=== PATIENT | male | born 1970 | race Hispanic/Latino ===

== ENCOUNTER 2016-11-24 10:41 | Emergency (ER) | payer SELFPAY ==
[2016-11-24] MEDS ORDERED: Ondansetron HCl/PF 4 MG/2 ML Vial ONE (11:13)
[2016-11-24] MEDS ORDERED: Sodium Chloride 0.9% 1,000 ML ONE ×2 (11:13→14:55)
[2016-11-24] MEDS ORDERED: Pantoprazole 40 MG VIAL ONE (11:13)
[2016-11-24 11:36] LABS: Blood, Urine Negative (Negative); Clarity Clear (Clear); Glucose, Urine (Dipstick) Negative (Negative); Leukocyte Negative (Negative); Nitrite Negative (Negative); Protein, Urine (Dipstick) 100 mg/dL (Neg-Trace); Specific Gravity, Urine 1.025 (1.005-1.030); pH, Urine 5.5 (5.0-9.0)
[2016-11-24 11:37] LABS: Bilirubin Small (Negative); Icto Positive (Negative)
[2016-11-24 11:51] LABS: Bacteria/HPF Rare-Few HPF (None Seen); Hyaline Casts/LPF 0-3 HYALINE CAST LPF (0-3 Hyaline); Other Casts/LPF 0-3 MIXED CASTS LPF (0-3 Hyaline); RBC/HPF None Seen HPF (0-3); Squamous Epithelial 0-3 HPF (0-3); WBC/HPF 0-3 HPF (0-3)
[2016-11-24 12:03] LABS: ALT (SGPT) 76 U/L (0-55); AST (SGOT) 108 U/L (5-34); Albumin 4.6 g/dL (3.5-5.0); Alkaline Phosphatase 265 U/L (40-150); Amylase 61 U/L (25-125); Anion Gap 19 mmol/L (10-20); BUN (Urea Nitrogen) 21 mg/dL (8.9-20.6); Bilirubin, Total 1.5 mg/dL (0.2-1.2); Calc. Creatinine Clearance 0 mL/min (70-130); Calcium 9.9 mg/dL (7.8-10.44); Carbon Dioxide 22 mmol/L (22-29); Chloride 98 mmol/L (98-107); Estimated GFR-MDRD 67; Globulin 5.2 g/dL (2.4-3.5); Glucose 129 mg/dL (70-105); Lipase 106 U/L (8-78); Potassium 4.7 mmol/L (3.5-5.1); Protein, Total 9.8 g/dL (6.0-8.3); Sodium 134 mmol/L (136-145)
--- NOTE | 2016-11-24 12:11 | CT ---
CT ABDOMEN AND PELVIS WITH CONTRAST HISTORY: Diffuse abdominal pain for two days. History of abdominal tumor and hernia repair. COMPARISON: 11/17/2016 TECHNIQUE: Multiple contiguous axial images were obtained in a CT of the abdomen and pelvis with contrast. Cor onal reformats were performed. FINDINGS: Calcifications are seen in the gallbladder. There appears to be gallbladder wall thickening. Stran ding changes are seen surrounding the gallbladder. No free air or free fluid is seen in the abdomen or pelvis. The liver, kidneys, adrenal glands, spleen, and pancreas are unremarkable. There are scattered diverticula in the colon. The small bowel and appendix are unremarkable. No ab dominal or pelvic lymphadenopathy is seen. Degenerative changes are seen in the spine. The visualized inferior thorax and abdominal wall soft tissues are unremarkable. IMPRESSION: Cholelithiasis. The stranding changes surrounding the gallbladder may be secondary to acute cholecy stitis. Correlate with liver function tests. A right upper quadrant ultrasound may be necessary fo r further evaluation. POS: [facility]
[2016-11-24 12:31] LABS: #Basophils 0.1 thou/uL (0.0-0.2); #Eosinphils 0.3 thou/uL (0.0-0.7); #Lymphocytes 2.1 thou/uL (1.20-3.40); #Neutrophils 9.8 thou/uL (1.40-6.50); %Eosinophils 2.3 % (0.0-10.0); %Lymphocytes 15.5 % (21.0-51.0); %Monocytes 7.8 % (0.0-10.0); %Neutrophils 73.3 % (42.0-75.0); Hemoglobin 16.9 g/dL (14.0-18.0); Mean Corpuscular HGB CONC 33.6 g/dL (32.0-36.0); Mean Corpuscular Hemoglobin 28.6 pg (27.0-31.0); Mean Corpuscular Volume 85.2 fl (80.0-94.0); Mean Platelet Volume 8.3 fL (7.4-10.4); Platelet Count 276 thou/uL (130-400); RBC Distribution Width 12.1 % (11.5-14.5); Red Blood Cell (RBC) Count 5.93 mill/uL (4.70-6.10); White Blood Cell (WBC) Count 13.4 thou/uL (4.8-10.8)
[2016-11-24] MEDS ORDERED: Sodium Chloride 0.9% 0 ML ONE (12:45)
[2016-11-24] MEDS ORDERED: Piperacillin/Tazobactam 3.375 GM VIAL ONE (12:45)
[2016-11-24] MEDS ORDERED: Sodium Chloride 0.9% 100 ML ONE (12:48)
== END 2016-11-24 16:04 | disposition short-term general hospital (02) ==
LOC: NAV ERS 10:41
DX: K81.0 Acute cholecystitis (principal); E11.9 Type 2 diabetes mellitus without complications; I10 Essential (primary) hypertension; E78.5 Hyperlipidemia, unspecified
CPT/HCPCS: 36415; 74177; 80053; 81003; 81015; 82150; 83690; 85025; 96361; 96365; 96375; 96376; C9113; J1170; J2405; J2543; J7050

== ENCOUNTER 2017-12-01 01:18 | Emergency (ER) | payer OTHER, SELFPAY ==
[2017-12-01] MEDS ORDERED: Ondansetron HCl/PF 4 MG/2 ML Vial ONE (02:21)
[2017-12-01 02:30] LABS: PTT 29.2 SEC (22.9-36.1); Prothrombin Time 13.5 SEC (12.0-14.7)
[2017-12-01 02:38] LABS: ALT (SGPT) 37 U/L (8-55); AST (SGOT) 28 U/L (5-34); Albumin 4.1 g/dL (3.5-5.0); Alkaline Phosphatase 96 U/L (40-150); Anion Gap 16 mmol/L (10-20); BUN (Urea Nitrogen) 18 mg/dL (8.9-20.6); Bilirubin, Total 0.3 mg/dL (0.2-1.2); Calc. Creatinine Clearance 0 mL/min (70-130); Calcium 9.2 mg/dL (7.8-10.44); Carbon Dioxide 25 mmol/L (22-29); Chloride 99 mmol/L (98-107); Estimated GFR-MDRD 66; Globulin 4.2 g/dL (2.4-3.5); Glucose 230 mg/dL (70-105); Potassium 4.3 mmol/L (3.5-5.1); Protein, Total 8.3 g/dL (6.0-8.3); Sodium 136 mmol/L (136-145)
[2017-12-01 02:39] LABS: Band 5 % (5-11); CKMB 1.6 ng/mL (0-6.6); Eosinophils 2 % (0-10); Hemoglobin 15.6 g/dL (14.0-18.0); Lymphocytes 45 % (21-51); MDiff Complete? YES; Mean Corpuscular HGB CONC 32.1 g/dL (32.0-36.0); Mean Corpuscular Hemoglobin 27.1 pg (27.0-31.0); Mean Corpuscular Volume 84.4 fl (80.0-94.0); Mean Platelet Volume 9.3 fL (7.4-10.4); Monocytes 4 % (0-10); Neutrophil 44 % (42-75); PLT Morphology Comment Appears Adequate; Platelet Count 215 thou/uL (130-400); RBC Distribution Width 12.1 % (11.5-14.5); RBC Morphology Normal; Red Blood Cell (RBC) Count 5.77 mill/uL (4.70-6.10); Troponin I Less than 0.010 ng/mL (< 0.028)
--- NOTE | 2017-12-01 07:40 | RAD ---
SINGLE VIEW CHEST: Date: 12/01/17 COMPARISON: 05/14/16. HISTORY: Vomiting blood that started 1 hour ago. FINDINGS: Single view of the chest shows a normal sized cardiomediastinal silhouette. There is no evidence of c onsolidation, mass, or pleural effusion. The bones are unremarkable. IMPRESSION: No evidence of acute cardiopulmonary disease. POS: [facility]
== END 2017-12-01 03:27 | disposition home or self-care (01) ==
LOC: NAV ERS 01:18
DX: J18.9 Pneumonia, unspecified organism (principal); E11.65 Type 2 diabetes mellitus with hyperglycemia; I10 Essential (primary) hypertension; E66.9 Obesity, unspecified; E78.5 Hyperlipidemia, unspecified; Z79.899 Other long term (current) drug therapy; Z79.84 Long term (current) use of oral hypoglycemic drugs
CPT/HCPCS: 71045; 80053; 82274; 82553; 84484; 85025; 85610; 85730; 93005; 96374; J2405

== ENCOUNTER 2018-03-01 09:46 | Emergency (ER) | payer SELFPAY ==
[~2018-03-01 09:46] MED LIST: Iopamidol 370 76% 100 ML VIAL ONE
[2018-03-01 11:03] LABS: ALT (SGPT) 95 U/L (8-55); AST (SGOT) 66 U/L (5-34); Albumin 4.4 g/dL (3.5-5.0); Alkaline Phosphatase 90 U/L (40-150); Anion Gap 16 mmol/L (10-20); BUN (Urea Nitrogen) 12 mg/dL (8.9-20.6); Bilirubin, Total 0.5 mg/dL (0.2-1.2); CK (CPK) 463 U/L (30-200); Calc. Creatinine Clearance 0 mL/min (70-130); Calcium 9.3 mg/dL (7.8-10.44); Carbon Dioxide 25 mmol/L (22-29); Chloride 97 mmol/L (98-107); Estimated GFR-MDRD 82; Globulin 3.5 g/dL (2.4-3.5); Glucose 328 mg/dL (70-105); Lipase 72 U/L (8-78); Potassium 4.7 mmol/L (3.5-5.1); Protein, Total 7.9 g/dL (6.0-8.3); Sodium 133 mmol/L (136-145)
--- NOTE | 2018-03-01 11:03 | RAD ---
PORTABLE CHEST 1 VIEW: Date: 03/01/18 Time: 1021 hours HISTORY: Chest pain. FINDINGS: Comparison made with exam of 12/01/17. The heart size is stable. There is continued elevation of the right hemidiaphragm. The lungs are well expanded without lobar consolidation, pneumothoraces, kyle pulmonary edema, or pleural effusions. IMPRESSION: No acute process. POS: [facility]
[2018-03-01 11:12] LABS: CKMB 2.1 ng/mL (0-6.6); Troponin I Less than 0.010 ng/mL (< 0.028)
[2018-03-01 11:17] LABS: Hemoglobin 15.7 g/dL (14.0-18.0); Mean Corpuscular HGB CONC 31.3 g/dL (32.0-36.0); Mean Corpuscular Hemoglobin 26.7 pg (27.0-31.0); Mean Corpuscular Volume 85.3 fL (78.0-98.0); Mean Platelet Volume 9.6 fL (7.4-10.4); Platelet Count 219 thou/uL (130-400); RBC Distribution Width 11.9 % (11.5-14.5); Red Blood Cell (RBC) Count 5.86 mill/uL (4.70-6.10); White Blood Cell (WBC) Count 5.5 thou/uL (4.8-10.8)
[2018-03-01 11:18] LABS: PLT Morphology Comment Appears Adequate
[2018-03-01 11:20] LABS: Lymphocytes 34 % (21-51); MDiff Complete? YES; Neutrophil 50 % (42-75)
[2018-03-01 11:21] LABS: Monocytes 5 % (0-10)
[2018-03-01] MEDS ORDERED: Ondansetron HCl/PF 4 MG/2 ML Vial ONE (12:03)
--- NOTE | 2018-03-01 12:26 | CT ---
CONTRAST ENHANCED CTA CHEST: HISTORY: Chest pain radiating to the left arm. TECHNIQUE: A contrast enhanced CTA chest is performed, and 2D and 3D reconstructed images are performed on an in dependent 3D work station. FINDINGS: Some minimal areas of pleural-based thickening along the posterior aspect of the left upper lobe pleu ra. Tiny areas of calcification seen in the left upper lobe, compatible with granulomas. No evidence of abnormality seen in the visualized portions of the aorta. No evidence of filling defe ct seen in the pulmonary arteries to suggest pulmonary emboli. No evidence of pleural or pericardial effusion seen. Incidentally noted calcifications seen in the distal most aspect of the left coronary artery, as well as extending into the LAD and left circumflex arteries. IMPRESSION: 1. No evidence of abnormality seen in the pulmonary arteries to suggest pulmonary emboli. 2. The patient is incidentally noted to have gas in the biliary system and in the common bile duct. 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 POS: [facility]
== END 2018-03-01 13:26 | disposition short-term general hospital (02) ==
LOC: NAV ERS 09:46
DX: R07.1 Chest pain on breathing (principal); R09.02 Hypoxemia; E11.9 Type 2 diabetes mellitus without complications; I10 Essential (primary) hypertension; E78.5 Hyperlipidemia, unspecified; Z79.899 Other long term (current) drug therapy; Z79.84 Long term (current) use of oral hypoglycemic drugs
CPT/HCPCS: 71045; 71275; 80053; 82553; 83690; 83880; 84484; 85025; 85379; 93005; 94760; 96374; 96375; J2270; J2405; J7620

== ENCOUNTER 2019-03-18 12:20 | Emergency (ER) | payer SELFPAY ==
[2019-03-18] MEDS ORDERED: Ondansetron PF 4 MG/2 ML Vial ONE (12:36)
[2019-03-18] MEDS ORDERED: Acetaminophen 325 MG TAB ONE (12:36)
[2019-03-18] MEDS ORDERED: Sodium Chloride 0.9% 1,000 ML ONE ×2 (12:36→13:15)
[2019-03-18 12:53] LABS: Bilirubin Negative (Negative); Blood, Urine Negative (Negative); Clarity Clear (Clear); Glucose, Urine (Dipstick) 500 mg/dL (Negative); Leukocyte Negative (Negative); Nitrite Negative (Negative); Protein, Urine (Dipstick) Trace mg/dL (Neg-Trace); Urobilinogen 0.2 mg/dL (Less than 2)
[2019-03-18 13:11] LABS: ALT (SGPT) 107 U/L (8-55); AST (SGOT) 51 U/L (5-34); Albumin 4.4 g/dL (3.5-5.0); Alkaline Phosphatase 79 U/L (40-150); Anion Gap 18 mmol/L (10-20); BUN (Urea Nitrogen) 21 mg/dL (8.9-20.6); Bilirubin, Total 0.7 mg/dL (0.2-1.2); Calc. Creatinine Clearance 0 mL/min (70-130); Calcium 9.2 mg/dL (7.8-10.44); Carbon Dioxide 21 mmol/L (22-29); Chloride 95 mmol/L (98-107); Estimated GFR-MDRD 46; Globulin 4.3 g/dL (2.4-3.5); Glucose 193 mg/dL (70-105); Lipase 64 U/L (8-78); Potassium 4.5 mmol/L (3.5-5.1); Protein, Total 8.7 g/dL (6.0-8.3); Sodium 129 mmol/L (136-145)
[2019-03-18 13:17] LABS: Hemoglobin 15.9 g/dL (14.0-18.0); Mean Corpuscular HGB CONC 31.1 g/dL (32.0-36.0); Mean Corpuscular Hemoglobin 27.2 pg (27.0-31.0); Mean Corpuscular Volume 87.6 fL (78.0-98.0); Mean Platelet Volume 8.9 fL (7.4-10.4); Platelet Count 176 thou/uL (130-400); RBC Distribution Width 12.4 % (11.5-14.5); Red Blood Cell (RBC) Count 5.85 mill/uL (4.70-6.10); White Blood Cell (WBC) Count 11.2 thou/uL (4.8-10.8)
[2019-03-18 13:25] LABS: Band 10 % (5-11); Eosinophils 2 % (0-10); Lymphocytes 13 % (21-51); MDiff Complete? YES; Monocytes 4 % (0-10); Neutrophil 71 % (42-75); Platelet Morphology Comment Appears Adequate; RBC Morphology Normal
--- NOTE | 2019-03-18 13:58 | CT ---
CT OF THE ABDOMEN AND PELVIS WITHOUT IV CONTRAST INDICATION: Nausea, vomiting, diarrhea and weakness COMPARISON: CT abdomen and pelvis with contrast dated November 24, 2016 FINDINGS: The lack of IV contrast limits evaluation of the solid organs of the abdomen and pelvis. ABDOMEN: Lung bases: Clear Liver: Diffuse fatty infiltration Gallbladder: Surgically absent with mild pneumobilia in the common bile duct and left intrahepatic b iliary ducts Pancreas: Normal. Adrenal glands: Normal. Spleen: Normal. Kidneys: Normal. Retroperitoneum of the upper abdomen: No lymphadenopathy or free fluid is identified. Additional findings: None. Pelvis: Small and large bowel: There is suggested wall thickening involving the cecum, ascending colon and he patic flexure. There is also some mild wall thickening suspected involving the transverse colon. Bladder: Partially decompressed Rectal and perirectal soft tissues:Normal. Reproductive structures: Normal. Free fluid in pelvis: No free fluid is evident. Lymphadenopathy pelvis: No lymphadenopathy is evident. Osseous structures: No acute osseous abnormality. No destructive osteolytic or osteoblastic lesion i s identified. There is scattered degenerative and osteoarthritic changes. IMPRESSION: 1. Findings suspicious for colitis of the cecum, ascending colon and transverse colon. Findings may b e infectious or inflammatory in etiology. 2. Fatty liver 3. Cholecystectomy with mild pneumobilia
[2019-03-18] MEDS ORDERED: Cefepime 2 GM VIAL ONE (14:04)
[2019-03-18] MEDS ORDERED: Morphine 4 MG/ML VIAL ONE (14:04)
[2019-03-18] MEDS ORDERED: metroNIDAZOLE 500 MG/100 ML BAG ONE (14:30)
== END 2019-03-18 14:52 | disposition short-term general hospital (02) ==
LOC: NAV ERS 12:20
DX: A41.9 Sepsis, unspecified organism (principal); K52.9 Noninfective gastroenteritis and colitis, unspecified; N28.9 Disorder of kidney and ureter, unspecified; E86.0 Dehydration; E11.9 Type 2 diabetes mellitus without complications; I10 Essential (primary) hypertension; E78.5 Hyperlipidemia, unspecified; E66.9 Obesity, unspecified
CPT/HCPCS: 36415; 74176; 80053; 81003; 83605; 83690; 85025; 87040; 93005; 94760; 96361; 96365; 96367; 96375; J0692; J2270; J2405; J7050

== ENCOUNTER 2019-12-21 17:19 | Emergency (ER) | payer SELFPAY ==
[2019-12-21] MEDS ORDERED: Ondansetron PF 4 MG/2 ML Vial ONE (17:48)
[2019-12-21] MEDS ORDERED: Meclizine HCl 25 MG TAB ONE (17:48)
== END 2019-12-21 18:25 | disposition home or self-care (01) ==
LOC: NAV ERS 17:19
DX: H81.13 Benign paroxysmal vertigo, bilateral (principal); E11.9 Type 2 diabetes mellitus without complications; E78.5 Hyperlipidemia, unspecified; I10 Essential (primary) hypertension
CPT/HCPCS: 93005; 96374; J2405

== ENCOUNTER 2020-06-21 08:57 | Emergency (ER) | payer BC, SELFPAY ==
[2020-06-21] MEDS ORDERED: Ondansetron PF 4 MG/2 ML Vial ONE (09:47)
[2020-06-21] MEDS ORDERED: Sodium Chloride 0.9% 1,000 ML ONE (09:47)
[2020-06-21 10:14] LABS: #Basophils 0.1 thou/uL (0.0-0.2); #Eosinphils 0.2 thou/uL (0.0-0.7); #Lymphocytes 1.7 thou/uL (1.20-3.40); #Monocytes 0.5 thou/uL (0.11-0.59); #Neutrophils 3.6 thou/uL (1.40-6.50); %Basophils 1.5 % (0.0-1.0); %Eosinophils 2.8 % (0.0-10.0); %Monocytes 7.7 % (0.0-10.0); Hemoglobin 17.3 g/dL (14.0-18.0); Mean Corpuscular Hemoglobin 27.9 pg (27.0-31.0); Mean Platelet Volume 9.5 fL (7.4-10.4); Platelet Count 191 thou/uL (130-400); RBC Distribution Width 12.4 % (11.5-14.5); Red Blood Cell (RBC) Count 6.19 mill/uL (4.70-6.10)
[2020-06-21] MEDS ORDERED: Aspirin Chewable 81 MG TAB ONE ×2 (10:25→10:39)
[2020-06-21] MEDS ORDERED: Meclizine HCl 25 MG TAB ONE ×2 (10:25→10:39)
[2020-06-21 10:37] LABS: ALT (SGPT) 29 U/L (8-55); AST (SGOT) 21 U/L (5-34); Albumin 4.5 g/dL (3.5-5.0); Alkaline Phosphatase 66 U/L (40-110); Anion Gap 17 mmol/L (10-20); BUN (Urea Nitrogen) 27 mg/dL (8.4-25.7); Bilirubin, Total 0.6 mg/dL (0.2-1.2); Calc. Creatinine Clearance 0 mL/min (70-130); Calcium 9.3 mg/dL (7.8-10.44); Carbon Dioxide 23 mmol/L (22-29); Chloride 102 mmol/L (98-107); Estimated GFR-MDRD 81; Globulin 3.6 g/dL (2.4-3.5); Glucose 194 mg/dL (70-105); Potassium 4.5 mmol/L (3.5-5.1); Protein, Total 8.1 g/dL (6.0-8.3); Sodium 137 mmol/L (136-145)
--- NOTE | 2020-06-21 10:52 | RAD ---
LEFT KNEE 4 VIEWS: HISTORY: Fall, left knee pain. FINDINGS/IMPRESSION: No fracture or dislocation is identified. POS: [facility]
[2020-06-21] MEDS ORDERED: Acetaminophen 500 MG TAB ONE (11:09)
[2020-06-21] MEDS ORDERED: Ketorolac Tromethamine 30 MG/ML VIAL ONE (11:09)
== END 2020-06-21 12:53 | disposition home or self-care (01) ==
LOC: NAV ERS 08:57
DX: S80.02XA Contusion of left knee, initial encounter (principal); E86.9 Volume depletion, unspecified; R55 Syncope and collapse; E11.9 Type 2 diabetes mellitus without complications; E78.5 Hyperlipidemia, unspecified; E78.00 Pure hypercholesterolemia, unspecified; I10 Essential (primary) hypertension; E66.9 Obesity, unspecified; W18.30XA Fall on same level, unspecified, initial encounter
CPT/HCPCS: 36416; 80053; 84484; 85025; 93005; 96374; 96375; J1885; J2405; J7050

== ENCOUNTER 2022-03-06 08:50 | Emergency (ER) | payer SELFPAY ==
[2022-03-06] MEDS ORDERED: Aspirin Chewable 81 MG TAB ONE (09:28)
[2022-03-06 09:35] LABS: #Basophils 0.1 thou/uL (0.0-0.2); #Eosinphils 0.2 thou/uL (0.0-0.7); #Lymphocytes 1.8 thou/uL (1.20-3.40); #Monocytes 0.6 thou/uL (0.11-0.59); #Neutrophils 4.2 thou/uL (1.40-6.50); %Basophils 1.2 % (0.0-1.0); %Eosinophils 3.1 % (0.0-10.0); %Monocytes 8.6 % (0.0-10.0); %Neutrophils 61.1 % (42.0-75.0); Hemoglobin 14.5 g/dL (14.0-18.0); Mean Corpuscular HGB CONC 30.2 g/dL (32.0-36.0); Mean Corpuscular Hemoglobin 27.5 pg (27.0-31.0); Mean Corpuscular Volume 91.2 fL (78.0-98.0); Platelet Count 188 thou/uL (130-400); RBC Distribution Width 12.3 % (11.5-14.5); Red Blood Cell (RBC) Count 5.29 mill/uL (4.70-6.10); White Blood Cell (WBC) Count 6.9 thou/uL (4.8-10.8)
[2022-03-06 09:45] LABS: ALT (SGPT) 25 U/L (8-55); AST (SGOT) 21 U/L (5-34); Albumin 4.3 g/dL (3.5-5.0); Alkaline Phosphatase 77 U/L (40-110); Anion Gap 17 mmol/L (10-20); BUN (Urea Nitrogen) 26 mg/dL (8.4-25.7); Bilirubin, Total 0.8 mg/dL (0.2-1.2); Calc. Creatinine Clearance 0 mL/min (70-130); Calcium 9.5 mg/dL (7.8-10.44); Carbon Dioxide 24 mmol/L (22-29); Chloride 101 mmol/L (98-107); Estimated GFR 106; Globulin 3.4 g/dL (2.4-3.5); Glucose 146 mg/dL (70-105); Lipase 90 U/L (8-78); Potassium 4.2 mmol/L (3.5-5.1); Protein, Total 7.7 g/dL (6.0-8.3); Sodium 138 mmol/L (136-145)
[2022-03-06] MEDS ORDERED: Acetaminophen 500 MG TAB ONE (10:10)
[2022-03-06 12:47] LABS: Troponin I Less than 0.010 ng/mL (< 0.028)
== END 2022-03-06 13:02 | disposition home or self-care (01) ==
LOC: NAV ERS 08:50
DX: R07.89 Other chest pain (principal); E11.9 Type 2 diabetes mellitus without complications; E78.5 Hyperlipidemia, unspecified; I10 Essential (primary) hypertension; Z79.84 Long term (current) use of oral hypoglycemic drugs; Z79.899 Other long term (current) drug therapy
CPT/HCPCS: 71045; 80053; 83690; 84484; 85025; 93005

== ENCOUNTER 2022-10-25 18:20 | Emergency (ER) | payer SELFPAY ==
[2022-10-25] MEDS ORDERED: Aspirin Chewable 81 MG TAB ONE (18:59)
[2022-10-25] MEDS ORDERED: Nitroglycerin 0.4 MG TAB (25 Tab Bottle) ONE (18:59)
[2022-10-25 19:04] LABS: #Basophils 0.1 thou/uL (0.0-0.2); #Eosinphils 0.2 thou/uL (0.0-0.7); #Lymphocytes 1.7 thou/uL (1.20-3.40); #Monocytes 0.4 thou/uL (0.11-0.59); #Neutrophils 3.6 thou/uL (1.40-6.50); %Basophils 1.2 % (0.0-1.0); %Eosinophils 3.7 % (0.0-10.0); %Lymphocytes 28.8 % (21.0-51.0); %Monocytes 6.4 % (0.0-10.0); %Neutrophils 59.9 % (42.0-75.0); Hemoglobin 13.9 g/dL (14.0-18.0); Mean Corpuscular HGB CONC 32.2 g/dL (32.0-36.0); Mean Corpuscular Hemoglobin 28.2 pg (27.0-31.0); Mean Corpuscular Volume 87.5 fl (78.0-98.0); Mean Platelet Volume 9.2 fL (7.4-10.4); Platelet Count 179 10x3/uL (130-400); RBC Distribution Width 11.8 % (11.5-14.5); Red Blood Cell (RBC) Count 4.91 mill/uL (4.70-6.10); White Blood Cell (WBC) Count 5.9 10x3/uL (4.8-10.8)
[2022-10-25 19:17] LABS: INR-International Normal Ratio 1.1; Prothrombin Time 14.7 sec (12.0-14.7)
[2022-10-25 19:18] LABS: PTT 30.7 sec (22.9-36.1)
[2022-10-25 19:28] LABS: ALT (SGPT) 33 U/L (8-55); AST (SGOT) 28 U/L (5-34); Alkaline Phosphatase 89 U/L (40-110); Anion Gap 15 mmol/L (10-20); BUN (Urea Nitrogen) 18 mg/dL (8.4-25.7); Bilirubin, Total 0.5 mg/dL (0.2-1.2); Calc. Creatinine Clearance 0 mL/min (70-130); Calcium 8.7 mg/dL (7.8-10.44); Carbon Dioxide 23 mmol/L (22-29); Chloride 104 mmol/L (98-107); Estimated GFR 106; Globulin 3.2 g/dL (2.4-3.5); Glucose 268 mg/dL (70-105); Lipase 133 U/L (8-78); Magnesium 1.9 mg/dL (1.6-2.6); Potassium 4.4 mmol/L (3.5-5.1); Protein, Total 7.2 g/dL (6.0-8.3); Sodium 138 mmol/L (136-145)
[2022-10-25 21:43] LABS: Troponin I Less than 0.010 ng/mL (< 0.028)
== END 2022-10-25 22:25 | disposition home or self-care (01) ==
LOC: NAV ERS 18:20
DX: R07.81 Pleurodynia (principal); E11.9 Type 2 diabetes mellitus without complications; E78.00 Pure hypercholesterolemia, unspecified; I10 Essential (primary) hypertension; E66.9 Obesity, unspecified; Z79.84 Long term (current) use of oral hypoglycemic drugs; Z79.899 Other long term (current) drug therapy
CPT/HCPCS: 36415; 71045; 71275; 74177; 80053; 83690; 83735; 83880; 84484; 85025; 85610; 85730; 93005; 94760; Q9967

== ENCOUNTER 2024-01-26 11:21 | Emergency (ER) | payer OTHER ==
[2024-01-26] MEDS ORDERED: Ketorolac Tromethamine 60 MG/2 ML VIAL ONE (12:49)
== END 2024-01-26 13:41 | disposition home or self-care (01) ==
LOC: NAV ERS 11:21
DX: M25.562 Pain in left knee (principal); E11.9 Type 2 diabetes mellitus without complications; I10 Essential (primary) hypertension; Z79.899 Other long term (current) drug therapy; Z79.84 Long term (current) use of oral hypoglycemic drugs; X50.1XXA Overexertion from prolonged static or awkward postures, initial encounter; Y99.0 Civilian activity done for income or pay
CPT/HCPCS: 96372; J1885